=== PATIENT | male | born 1965 | race Two or more races ===

== ENCOUNTER 2024-05-03 16:27 | Inpatient (IN) | payer MEDICARE, MEDICAID ==
[~2024-05-03] VITALS: Ht 160 cm; Wt 62.0 kg
[2024-05-03] MEDS: MORPHINE SULFATE 4 MG/ML SYR/VIAL IV ONE (18:15)
[2024-05-03] MEDS: ONDANSETRON HCL 4 MG/2 ML VIAL IV ONE (18:15)
[2024-05-03] MEDS: SODIUM CHLORIDE 0.9% 1,000 ML IV ONE (18:15)
[2024-05-03 18:46] LABS: Basophils # (auto) 0.1 10 ^3/uL (0-0.2); Basophils % (auto) 0.8 % (0.0-2.0); Eosinophils # (auto) 0.1 10 ^3/uL (0-0.8); Eosinophils % (auto) 1.3 % (0.0-7.0); Hematocrit 35.5 % (41.0-53.0); Hemoglobin 11.7 g/dL (13.5-17.5); Lymphocytes # (auto) 0.8 10 ^3/uL (0.4-5.4); Lymphocytes % (auto) 11.7 % (10.0-50.0); Mean Corpuscular Hemoglobin 31.1 pg (28.0-32.0); Mean Corpuscular Hgb Conc. 32.9 g/dL (32.0-36.0); Mean Corpuscular Volume 94.5 fL (80.0-100.0); Monocytes # (auto) 0.4 10 ^3/uL (0-1.3); Monocytes % (auto) 6.1 % (0.0-12.0); Neutrophils # (auto) 5.8 10 ^3/uL (1.6-8.6); Neutrophils % (auto) 80.1 % (37.0-80.0); Platelet Count (auto) 182 10^3/uL (140-450); Red Blood Cells 3.75 10^6/uL (4.5-5.90); Red Cell Distribution Width 17.8 % (11.8-14.3); White Blood Cell 7.2 10^3/uL (4.4-10.8)
[2024-05-03 19:21] LABS: Albumin 3.4 g/dL (3.2-4.8); Anion Gap 10 (5-15); Calcium 9.3 mg/dL (8.7-10.4); Carbon Dioxide 22 mmol/L (20-31); Chloride 107 mmol/L (98-107); Glucose 103 mg/dL (74-106); Lipase 37 U/L (12-53); Potassium 4.1 mmol/L (3.5-5.1); Sodium 139 mmol/L (136-145)
--- NOTE | 2024-05-03 19:22 | DVH ---
Exam: CT CT AB PEL WO CON-NO ORAL OR IV History: abd pain distention hx colon ca Comparison Study: None TECHNIQUE: Multidetector CT of the abdomen and pelvis was performed from lung bases to pubic symphysi s. Imaging was performed without IV contrast. Axial, coronal, and sagittal multiplanar reformats were obtained from the axial data set by the technologist. RADIATION DOSE: DLP 333.1 mGy.cm; CTDI vol 5.79 mGy. Findings: Limited evaluation given noncontrast technique. Lungs: Multiple left lower lobe pulmonary nodules. Heart: No cardiomegaly or pericardial effusion. Liver: Percutaneous biliary stent. Common bile duct stent. Biliary ductal dilatation with portal veno us gas Gallbladder: Unremarkable. Spleen: Splenomegaly. Pancreas: Unremarkable Adrenals: Unremarkable Kidneys: Unremarkable GI tract: Postsurgical changes of the bowel. : Unremarkable. Vasculature: Unremarkable Lymphadenopathy: Calcified retroperitoneal nodes. Peritoneum: Moderate volume ascites. Musculoskeletal: Mild multilevel degenerative changes of the thoracolumbar spine. Expansile lesions i n the posterolateral aspects of right ribs 10-11. Soft tissues: Unremarkable Impression: 1. Limited evaluation given noncontrast technique. 2. No acute abdominopelvic abnormalities. 3. Moderate volume ascites. 4. Percutaneous biliary and common bile duct stents with biliary ductal dilatation and portal venous gas. 5. Splenomegaly. 6. Multiple left lower lobe pulmonary nodules. Cannot exclude metastatic disease. 7. Expansile lesions in the posterior aspects of right ribs 10-11, may be metastatic.
[2024-05-03 19:35] LABS: BUN/Creatinine Ratio 10.7 (10.0-20.0)
[2024-05-03 19:37] LABS: Alanine Aminotransferase 56 U/L (7-40); Alkaline Phosphatase 510 U/L (46-116); Aspartate Aminotransferase 74 U/L (13-40); Bilirubin, Total 12.4 mg/dL (0.2-1.0); Blood Urea Nitrogen 8 mg/dL (9-23); Total Protein 7.5 g/dL (5.7-8.2)
--- NOTE | 2024-05-03 20:33 | ED.PDOC ---
GI ASSESSMENT HPI Comments 58y M with a history of terminal colon CA presents to the ED for chief complaint of abdominal pain distention. Pt states he has history of terminal colon cancer with mets to the liver and states over the past few, weeks has noticed increased abdominal distention with increased fluid in the abdomen. Pt states he was receiving cancer treatment at [facility], including biliary stent placement on 04/26/2024. He states the biliary stent has been draining appropriately, however he has developed more abdominal fluid and was told by [facility] that he could go to any hospital for therapeutic paracentesis. Pt otherwise has noted nausea but denies shortness of breath, diarrhea, fever, cough, chills, dizzine ss, headache, chest pain. He states he is short of breath at night due to the abdominal distention making it difficult for him to take deep breaths while lying flat. Pt otherwise has noted abdominal distention with noted biliary pain in the R side of abdomen. Pt otherwise has noted stable vitals with noted temp of 98.0F, rr 17, BP 118/71, and 02 sat of 100% on room air. Pt otherwise denies any other symptoms at this time. Chief Complaint: Abdominal Pain Time Seen by MD: 20:30 Reviewed Notes: Medications, Allergies Information Source: Patient Mode of Arrival: Ambulatory Brought in by: self Past Medical History PAST MEDICAL HISTORY: Cancer (Stage IV colon CA) Surgical History (Other): Biliary stent placement, partial colectomy Family History Family History: Reviewed,noncontributory to illness Social History Smoker: Non-Smoker Alcohol: Denies ETOH Use Drugs: Denies Drug Use Lives In: Home Constitutional: denies: chills, diaphoresis, fatigue, fever, malaise, sweats, weakness, others EENTM: denies: blurred vision, double vision, ear bleeding, ear discharge, ear drainage, ear pain, ear ringing, eye pain, eye redness, hearing loss, mouth pain, mouth swelling, nasal discharge, nose bleeding, nose congestion, nose pain, photophobia, tearing, throat pain, throat swelling, voice changes, others Respiratory: denies: cough, hemoptysis, orthopnea, SOB at rest, shortness of breath, SOB with excertion, stridor, wheezing, others Cardiovascular: denies: chest pain, dizzy spells, diaphoresis, Dyspnea on exertion, edema, irregular heart beat, left arm pain, lightheadedness, palpitations, PND, syncope, others Gastrointestinal: reports: abdominal pain, nausea; denies: abdomen distended, blood streaked bowels, constipated, diarrhea, dysphagia, difficulty swallowing, hematemesis, melena, poor appetite, poor fluid intake, rectal bleeding, rectal pain, vomiting, others Genitourinary: denies: burning, dysuria, flank pain, frequency, hematuria, incontinence, penile discharge, penile sore, pain, testicle pain, testicle swelling, urgency, others Neurological: denies: dizziness, fainting, headache, left sided numbness, left sided weakness, numbness, paresthesia, pre-existing deficit, right sided numbness, right sided weakness, seizure, speech problems, tingling, tremors, weakness, others Musculoskeletal: denies: back pain, gout, joint pain, joint swelling, muscle pa in, muscle stiffness, neck pain, others Integumetry: denies: bruises, change in color, change in hair/nails, dryness, laceration, lesions, lumps, rash, wounds, others Allergic/Immunocompromised: denies: Difficulty Healing, Frequent Infections, Hives, Itching, others Hematologic/Lymphatic: denies: anemia, blood clots, easy bleeding, easy bruising, swollen glands, others Endocrine: denies: excessive hunger, excessive sweating, excessive thirst, excessive urination, flushing, intolerance to cold, intolerance to heat, unexplained weight gain, unexplained weight loss, others Psychiatric: denies: anxiety, bipolar disorder, depression, hopeless, panic disorder, schizophrenia, sleepless, suicidal, others All Other Systems: Reviewed and Negative Physical Exam General Appearance: No Apparent Distress HEENT: PERRL/EOMI, Scleral Icterus (L) Neck: Full Range of Motion, Normal Inspection Respiratory: Lungs Clear, No Accessory Muscle Use, No Respiratory Distress, Normal Breath Sounds Cardiovascular: No Edema, No JVD, Regular Rate/Rhythm Breast Exam: Deferred Gastrointestinal: Diffuse, Distended, Tenderness, Other (Tense distended abdomen with mild diffuse tenderness to palpation. Right-sided abdominal biliary drain.) Genitalia: Deferred Pelvic: Deferred Rectal: Deferred Extremities: Normal inspection, Normal range of motion, Non-tender, No pedal edema Neurologic: Alert (Oriented x4), Normal Affect, Normal Mood, Other (Ambulatory. No gross focal deficit.) Cerebellar Function: NOT DONE Reflexes: NOT DONE Skin: Dry, Jaundice, Warm Lymphatic: NOT DONE Was a procedure done? Was a procedure done?: No GI differential Dx Differential Diagnosis: Bowel Obstruction, Constipation, Gastritis/PUD, Gastroenteritis, Ischemic Bowel, Pancreatitis, Electrolyte Imbalance, Bacterial, Viral, Impaction, Stress Ulcer Other Differential Diagnosis Severe ascites, among others X-Ray, Labs, Meds, VS Vital Signs Date Time Temp Pulse Resp B/P (MAP) Pulse Ox O2 Delivery O2 Flow Rate FiO2 05/03/24 17:17 98.0 80 17 118/71 (87) 100 Lab Test 05/03/24 20:00 05/03/24 18:25 Range/Units Urine Color Dark-yellow Yellow Urine Clarity Turbid H Clear Urine pH 5.5 5.0-9.0 Urine Specific [place] 1.019 1.001-1.035 Urine Protein Trace H Negative Urine Ketones Negative Negative Urine Blood Negative Negative /uL Urine Nitrite Negative Negative Urine Bilirubin 2+ Negative Urine Urobilinogen 2 H Negative mg/dL Urine Leukocyte Esterase 1+ Negative /uL Urine RBC 1 0 - 3 /hpf Urine Microscopic WBC 25 H 0-3 /HPF Urine Squamous Epithelial Cells Few <5 /hpf Urine Bacteria Many H None Seen /hpf Urine Mucus Few None Seen Urine Glucose Normal Normal mg/dL White Blood Count 7.2 4.4-10.8 10^3/uL Red Blood Count 3.75 L 4.5-5.90 10^6/uL Hemoglobin 11.7 L 13.5-17.5 g/dL Hematocrit 35.5 L 41.0-53.0 % Mean Corpuscular Volume 94.5 80.0-100.0 fL Mean Corpuscular Hemoglobin 31.1 28.0-32.0 pg Mean Corpuscular Hemoglobin Concent 32.9 32.0-36.0 g/dL Red Cell Distribution Width 17.8 H 11.8-14.3 % Platelet Count 182 140-450 10^3/uL Mean Platelet Volume 6.3 L 6.9-10.8 fL Neutrophils (%) (Auto) 80.1 H 37.0-80.0 % Lymphocytes (%) (Auto) 11.7 10.0-50.0 % Monocytes (%) (Auto) 6.1 0.0-12.0 % Eosinophils (%) (Auto) 1.3 0.0-7.0 % Basophils (%) (Auto) 0.8 0.0-2.0 % Neutrophils # (Auto) 5.8 1.6-8.6 10 ^3/uL Lymphocytes # (Auto) 0.8 0.4-5.4 10 ^3/uL Monocytes # (Auto) 0.4 0-1.3 10 ^3/uL Eosinophils # (Auto) 0.1 0-0.8 10 ^3/uL Basophils # (Auto) 0.1 0-0.2 10 ^3/uL Nucleated Red Blood Cells 0.0 % Sodium Level 139 136-145 mmol/L Potassium Level 4.1 3.5-5.1 mmol/L Chloride Level 107 98-107 mmol/L Carbon Dioxide Level 22 20-31 mmol/L Anion Gap 10 5-15 Blood Urea Nitrogen 8 L 9-23 mg/dL Creatinine 0.75 0.700-1.30 mg/dL Glomerular Filtration Rate Calc 105 >90 mL/min BUN/Creatinine Ratio 10.7 10.0-20.0 Serum Glucose 103 74-106 mg/dL Lactic Acid Level 1.5 0.4-2.0 mmol/L Calcium Level 9.3 8.7-10.4 mg/dL Total Bilirubin 12.4 H 0.2-1.0 mg/dL Aspartate Amino Transferase (AST) 74 H 13-40 U/L Alanine Aminotransferase (ALT) 56 H 7-40 U/L Alkaline Phosphatase 510 H 46-116 U/L Troponin I High Sensitivity < 3 L </=54 ng/L Total Protein 7.5 5.7-8.2 g/dL Albumin 3.4 3.2-4.8 g/dL Lipase 37 12-53 U/L [facility] [id number] [place] [id number] Ph: [phone] DIAGNOSTIC IMAGING Diagnostic Imaging Report : [id number] Signed PATIENT: JOSEPH SOLIZT: [id number] UNIT: [id number] : 1965 LOC: ER ROOM / BED: / AGE / SEX: 58 / M ADM STATUS: REG ER SERVICE 13 ORDERING PHYSICIAN: OCTAVIA GARCIA MD PROCEDURE(s): ABPL - CT AB PEL WO CON-NO ORAL OR IV REASON: abd pain distention hx colon ca ORDER NUMBER(s): [id number], ACCESSION NUMBER(s): [id number] Exam: CT CT AB PEL WO CON-NO ORAL OR IV History: abd pain distention hx colon ca Comparison Study: None TECHNIQUE: Multidetector CT of the abdomen and pelvis was performed from lung bases to pubic symphysis. Imaging was performed without IV contrast. Axial, coronal, and sagittal multiplanar reformats were obtained from the axial data set by the technologist. RADIATION DOSE: DLP 333.1 mGy.cm; CTDI vol 5.79 mGy. Findings: Limited evaluation given noncontrast technique. Lungs: Multiple left lower lobe pulmonary nodules. Heart: No cardiomegaly or pericardial effusion. Liver: Percutaneous biliary stent. Common bile duct stent. Biliary ductal dilatation with portal venous gas Gallbladder: Unremarkable. Spleen: Splenomegaly. Pancreas: Unremarkable Adrenals: Unremarkable Kidneys: Unremarkable GI tract: Postsurgical changes of the bowel. : Unremarkable. Vasculature: Unremarkable Lymphadenopathy: Calcified retroperitoneal nodes. Peritoneum: Moderate volume ascites. Musculoskeletal: Mild multilevel degenerative changes of the thoracolumbar spine. Expansile lesions in the posterolateral aspects of right ribs 10-11. Soft tissues: Unremarkable Impression: 1. Limited evaluation given noncontrast technique. 2. No acute abdominopelvic abnormalities. 3. Moderate volume ascites. 4. Percutaneous biliary and common bile duct stents with biliary ductal dilatation and portal venous gas. 5. Splenomegaly. 6. Multiple left lower lobe pulmonary nodules. Cannot exclude metastatic disease. 7. Expansile lesions in the posterior aspects of right ribs 10-11, may be metastatic. ATED BY: YUE WYLIE DO DICTATED DATE/TIME: 05/03/241919 SIGNED BY: YUE WYLIE DO SIGNED DATE/TIME: 05/03/241919 CC: X-Ray, Labs, Meds, VS Comment 58-year-old male with a history of metastatic colon CA status post biliary drain placement presenting complaining of abdominal pain, distention and difficulty breathing Vitals unremarkable Exam remarkable for a tense distended abdomen with mild diffuse tenderness to palpation Rhythm strip independently interpreted by me: Sinus rhythm, rate 80, no ectopy. CT abdomen and pelvis: Impression: 1. Limited evaluation given noncontrast technique. 2. No acute abdominopelvic abnormalities. 3. Moderate volume ascites. 4. Percutaneous biliary and common bile duct stents with biliary ductal dilatation and portal venous gas. 5. Splenomegaly. 6. Multiple left lower lobe pulmonary nodules. Cannot exclude metastatic disease. 7. Expansile lesions in the posterior aspects of right ribs 10-11, may be metastatic. CBC remarkable for hemoglobin 11.7, hematocrit 35.5, metabolic panel remarkable for total bilirubin 12.4, AST 74, ALT 56, alkaline phos 510, lipase normal, UA abnormal consistent with UTI Patient treated with the following in the ED: Morphine 4 mg IV, Zofran 4 mg IV, Rocephin 1 g IV On re-evaluation, patient states pain has improved. Vitals were stable. Plan is to admit the patient for therapeutic paracentesis and IV antibiotics to treat his UTI. Time of 1ST Reevaluation: 21:00 Reevaluation 1ST: Unchanged Patient Education/Counseling: Diagnosis, Treatment Family Education/Counseling: No Family Present Additional Information -Reviewed patient's previous visit(s): - The following tests were ordered, and results were reviewed by me:tropx 3, cbc,cmp, lipase, ua, blood culture, lactic acid, ct abd pelvic non-con, - Additional information was gathered from interviewing the following independent Historian: patient - I reviewed and agreed with the following test results read by other provider: radiologist - I discussed treatments and results with medical personnel and: patient Comprehensive systems review obtained and negative except for what is stated in the HPI. Departure 1 Departure Time of Disposition: 20:46 Impression: Primary Impression: Ascites Qualified Codes: R18.0 - Malignant ascites Additional Impression: UTI (urinary tract infection) Qualified Codes: N39.0 - Urinary tract infection, site not specified Disposition: ADMITTED INPATIENT Admit to: Med Surg Condition: Fair Critical Care Note Critical Care Time?: No Stability Stability form required: No Heart Score Heart Score: Heart Score Response (Comments) Value History N/A 0 EKG N/A 0 Age N/A 0 Risk Factors N/A 0 Troponin N/A 0 Total 0 I personally scribed for OCTAVIA GARCIA MD ([facility]) on 05/03/24 at 20:33. Electronically submitted by Bebeto Adams ([facility]). OCTAVIA GARCIA MD May 03, 2024 20:33
[2024-05-03 20:34] LABS: Urine Bacteria MANY /hpf (None Seen); Urine Blood Negative /uL (Negative); Urine Clarity Turbid (Clear); Urine Color Dark-Yellow (Yellow); Urine Mucus FEW (None Seen); Urine Protein, UAD TRACE (Negative); Urine Specific Gravity 1.019 (1.001-1.035); Urine Squamous Epithelial Cell FEW /hpf (<5); Urine Urobilinogen 2 mg/dL (Negative); Urine WBC 25 /HPF (0-3); Urine pH 5.5 (5.0-9.0)
[2024-05-03] MEDS: cefTRIAXone 1GM/50ML D5W 50 ML IV ONE (20:45)
--- NOTE | 2024-05-03 22:28 | DVHHPRES ---
History of Present Illness Resident Creating Document: CHIP BOWLES RESIDENT Reason for Visit: ABDOMINAL PAIN AND DISTENSION History of Present Illness 58 year old male Tu[place] speaking only with a history colon cancer with metastasis to the liver presenting to the ED today with a chief complaint of abdominal pains with distension. Patient was diagnosed of Colon cancer in 2016 and had partial colectomy with chemotherapy. However in 2021, he had a recurrence of the colon cancer with metastasis. Patient used to see an oncologist at [facility] and was on chemotherapy. But due to intolerance and side effects such as "shortness of breath and severe shaking" his oncologist decided to discontinue the chemotherapy and placed percutaneous stent and biliary draine 15 days ago ( End of March). He is here because of the abdominal distension with associated pain,mild shortness of breath and early satiety. He denies fever, chest pain, hematemesis, hematochezia, fatigue or pruritis. Chest x-raey shows right basilar effusion and fluid in the right major fissure. CT Abdomen showed moderate volume ascites, splenomegaly and Multiple left lower lobe pulmonary nodules and Expansile lesions in the posterior aspects of right ribs 10-11. PMhx: Colon cancer PSHx: Colectomy 2019, Biliary stent Social Hx: Disable, lives with sister and son Past Medical History See HPI Review of Systems Constitutional: No: Fever, Chills, Sweats, Weakness, Malaise, Other ENT: No: Ear pain, Ear discharge, Nose pain, Nose discharge, Nose congestion, Mouth pain, Mouth swelling, Throat pain, Throat swelling, Other Respiratory: Shortness of breath; No: Cough, Dry, SOB with excertion, Wheezing, Hemoptysis, Pleuritic Pain, Sputum, Wheezing, Other Cardiovascular: No: Chest Pain, Palpitations, Orthopnea, Paroxysmal Noc. Dyspnea, Edema, Lt Headedness, Other Gastrointestinal: Abdominal Pain; No: Nausea, Vomiting, Diarrhea, Constipation, Melena, Hematochezia, Other Genitourinary: No Dysuria, No Frequency, No Incontinence, No Hematuria, No Retention, No Other Musculoskeletal: No: other, neck pain, shoulder pain, arm pain, back pain, hand pain, leg pain, foot pain Skin: No: Rash, Lesions, Jaundice, Bruising, Other Allergies: Coded Allergies: NO KNOWN ALLERGIES (Unverified , 05/03/24) Medications Current Medications Medications Dose Ordered Sig/[place]ee[place]e Route Start Time Stop Time Status Last Admin Dose Admin Ceftriaxone Sodium 50 ml @ 100 mls/hr DAILY@09 IV 05/04/24 09:00 Exam Vital Signs Vital Signs Date Time Temp Pulse Resp B/P (MAP) Pulse Ox O2 Delivery O2 Flow Rate FiO2 05/03/24 17:17 98.0 80 17 118/71 (87) 100 Exam General Appearance: Alert, Oriented X3, Cooperative, Mild acute distress HEENT: Atraumatic, PERRLA, EOMI, Mucous membrane moist/pink Respiratory: Clear to auscultation, Normal air movement Cardiovascular: Regular rate, Normal S1, Normal S2, No murmurs, no chest wall tenderness Abdominal: distention and tenderness,hernia bowel sounds present, no scars noted Extremities: No clubbing, No cyanosis, No edema, Normal pulses, No tenderness/swelling Skin: No rashes, No breakdown, No significant lesion Neuro: Normal gait, Normal speech, Strength at 5/5 X4 ext, Normal tone, Sensation intact, Cranial nerves 3-12 NL, Reflexes 2+ Psych/Mental Status: Mental status NL, Mood NL Labs/Xrays Labs Test 05/03/24 20:00 05/03/24 18:25 Range/Units Urine Color Dark-yellow Yellow Urine Clarity Turbid H Clear Urine pH 5.5 5.0-9.0 Urine Specific [place] 1.019 1.001-1.035 Urine Protein Trace H Negative Urine Ketones Negative Negative Urine Blood Negative Negative /uL Urine Nitrite Negative Negative Urine Bilirubin 2+ Negative Urine Urobilinogen 2 H Negative mg/dL Urine Leukocyte Esterase 1+ Negative /uL Urine RBC 1 0 - 3 /hpf Urine Microscopic WBC 25 H 0-3 /HPF Urine Squamous Epithelial Cells Few <5 /hpf Urine Bacteria Many H None Seen /hpf Urine Mucus Few None Seen Urine Glucose Normal Normal mg/dL White Blood Count 7.2 4.4-10.8 10^3/uL Red Blood Count 3.75 L 4.5-5.90 10^6/uL Hemoglobin 11.7 L 13.5-17.5 g/dL Hematocrit 35.5 L 41.0-53.0 % Mean Corpuscular Volume 94.5 80.0-100.0 fL Mean Corpuscular Hemoglobin 31.1 28.0-32.0 pg Mean Corpuscular Hemoglobin Concent 32.9 32.0-36.0 g/dL Red Cell Distribution Width 17.8 H 11.8-14.3 % Platelet Count 182 140-450 10^3/uL Mean Platelet Volume 6.3 L 6.9-10.8 fL Neutrophils (%) (Auto) 80.1 H 37.0-80.0 % Lymphocytes (%) (Auto) 11.7 10.0-50.0 % Monocytes (%) (Auto) 6.1 0.0-12.0 % Eosinophils (%) (Auto) 1.3 0.0-7.0 % Basophils (%) (Auto) 0.8 0.0-2.0 % Neutrophils # (Auto) 5.8 1.6-8.6 10 ^3/uL Lymphocytes # (Auto) 0.8 0.4-5.4 10 ^3/uL Monocytes # (Auto) 0.4 0-1.3 10 ^3/uL Eosinophils # (Auto) 0.1 0-0.8 10 ^3/uL Basophils # (Auto) 0.1 0-0.2 10 ^3/uL Nucleated Red Blood Cells 0.0 % Sodium Level 139 136-145 mmol/L Potassium Level 4.1 3.5-5.1 mmol/L Chloride Level 107 98-107 mmol/L Carbon Dioxide Level 22 20-31 mmol/L Anion Gap 10 5-15 Blood Urea Nitrogen 8 L 9-23 mg/dL Creatinine 0.75 0.700-1.30 mg/dL Glomerular Filtration Rate Calc 105 >90 mL/min BUN/Creatinine Ratio 10.7 10.0-20.0 Serum Glucose 103 74-106 mg/dL Lactic Acid Level 1.5 0.4-2.0 mmol/L Calcium Level 9.3 8.7-10.4 mg/dL Total Bilirubin 12.4 H 0.2-1.0 mg/dL Aspartate Amino Transferase (AST) 74 H 13-40 U/L Alanine Aminotransferase (ALT) 56 H 7-40 U/L Alkaline Phosphatase 510 H 46-116 U/L Troponin I High Sensitivity < 3 L </=54 ng/L Total Protein 7.5 5.7-8.2 g/dL Lipase 37 12-53 U/L Assessment/Plan Assessment/Plan Assessment Ascites 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 Valdez Plan discussed with: Patient My Orders Orders - CHIP BOWLES Procedure Category Date Status Time Admit ADMIT 05/03/24 Transmitted 21:50 Complete Blood Count LAB 05/04/24 Verified 04:00 Drug Screen LAB 05/03/24 In Process 21:50 PTPTT LAB 05/03/24 In Process 21:50 Thyroid Stimulating LAB 05/03/24 In Process Hormone 21:50 Cytology SRI 05/03/24 Transmitted 21:50 Chest Xray 1 View XY 05/03/24 Taken 21:50 Electrocardigram EKG 05/03/24 Logged 22:50 Ammonia LAB 05/03/24 Logged 21:50 Lactate Dehydrogenase LAB 05/03/24 In Process 21:50 Lactate LAB 05/03/24 Logged Dehydrogenase, Fluid 21:50 Albumin; Body Fluid LAB 05/03/24 Logged 21:50 Albumin LAB 05/03/24 In Process 21:50 Body Fluid Ph LAB 05/03/24 Logged 21:50 Body Fluid Culture W/ SRI 05/03/24 Logged GS 21:50 Body Fluids, Diff. LAB 05/03/24 Logged Cell Count 21:50 Comprehensive LAB 05/04/24 Verified Metabolic Panel 04:00 Paracentesis US 05/04/24 Logged 07:00 Ceftriaxone 1gm/50ml PHA 05/04/24 In Process D5w (Rocephin) 09:00 Date of Service: May 03, 2024 Billing Provider: LYLY VALDEZ MD Common Visit Codes: 35927-CLTKOSM INP/OBS CARE (HIGH) Secondary Visit Codes: 67446-ZOLCIBCI CARE PLAN 30 MINUTES CHIP BOWLES May 03, 2024 22:28 LYLY VALDEZ MD May 04, 2024 16:57
[2024-05-03 22:30] VITALS: PULSE 78; RESP 12; O2SAT 99
--- NOTE | 2024-05-03 22:39 | DVH ---
CHEST RADIOGRAPH Indication: rule out pneumonia Technique: Single frontal view of the chest was obtained Comparison: Lung windows from prior CT examination of the abdomen and pelvis of today's date FINDINGS: 1. There is an effusion and fluid in the right major fissure in the right lung base. Otherwise lungs are clear. Is also a pigtail catheter projecting over the liver IMPRESSION: 1. Right basilar effusion and fluid in the right major fissure.Patient has a Biliary drain projecting over liver..
[2024-05-03 22:43] LABS: INR 1.31 (0.9-1.15); Partial Thromboplastin Time 32.3 SEC (24.5-34.5); Prothrombin Time 13.5 sec (9.3-11.8)
--- NOTE | 2024-05-03 22:44 | DVH ---
INDICATION: FLUID CHECK TECHNIQUE: Multiple real-time sonographic images were obtained of the right upper quadrant. COMPARISON: None FINDINGS: Liver is heterogeneous and there is significant ascites adjacent to the liver and and throughout the abdomen. Spleen is enlarged measuring 14 cm in span. IMPRESSION: 1. Significant ascites.
[2024-05-03 22:51] LABS: Thyroid Stimulating Hormone 4.51 uIU/mL (0.55-4.78)
[2024-05-03 22:58] LABS: Amphetamine Screen, Urine Neg (NEGATIVE); Barbiturate Scree,Urine Neg (NEGATIVE); Benzodiazephine Screen, Urine Neg (NEGATIVE); Cannabinoid Screen, Urine Neg (NEGATIVE); Cocaine Screen, Urine Neg (NEGATIVE); Opiate Scree,Urine Neg (NEGATIVE); Phencyclidine Screen, Urine Neg (NEGATIVE)
[2024-05-03 23:54] VITALS: BP 100/61; PULSE 60; RESP 20; TEMP 98.1; O2SAT 100
[2024-05-04] VITALS (9 sets, daily range): BP systolic 90–104; BP diastolic 54–63; PULSE 60–73; RESP 17–20; TEMP 97.6–98.1; O2SAT 98–100
[2024-05-04 06:16] LABS: Basophils # (auto) 0.1 10 ^3/uL (0-0.2); Basophils % (auto) 1.2 % (0.0-2.0); Eosinophils # (auto) 0.1 10 ^3/uL (0-0.8); Eosinophils % (auto) 1.5 % (0.0-7.0); Hematocrit 28.2 % (41.0-53.0); Hemoglobin 9.8 g/dL (13.5-17.5); Lymphocytes # (auto) 0.7 10 ^3/uL (0.4-5.4); Lymphocytes % (auto) 14.6 % (10.0-50.0); Mean Corpuscular Hemoglobin 31.9 pg (28.0-32.0); Mean Corpuscular Hgb Conc. 34.9 g/dL (32.0-36.0); Mean Corpuscular Volume 91.4 fL (80.0-100.0); Monocytes # (auto) 0.5 10 ^3/uL (0-1.3); Monocytes % (auto) 9.2 % (0.0-12.0); Neutrophils # (auto) 3.7 10 ^3/uL (1.6-8.6); Neutrophils % (auto) 73.5 % (37.0-80.0); Nucleated Red Blood Cells % 0.1 %; Platelet Count (auto) 144 10^3/uL (140-450); Red Blood Cells 3.09 10^6/uL (4.5-5.90); Red Cell Distribution Width 17.2 % (11.8-14.3)
[2024-05-04 06:27] LABS: Alanine Aminotransferase 48 U/L (7-40); Albumin 2.8 g/dL (3.2-4.8); Alkaline Phosphatase 436 U/L (46-116); Anion Gap 8 (5-15); Aspartate Aminotransferase 65 U/L (13-40); Blood Urea Nitrogen 9 mg/dL (9-23); Calcium 8.8 mg/dL (8.7-10.4); Carbon Dioxide 25 mmol/L (20-31); Chloride 107 mmol/L (98-107); Glucose 79 mg/dL (74-106); Potassium 3.8 mmol/L (3.5-5.1); Sodium 140 mmol/L (136-145)
[2024-05-04 06:28] LABS: BUN/Creatinine Ratio 12.7 (10.0-20.0)
[2024-05-04 06:32] LABS: Total Protein 6.2 g/dL (5.7-8.2)
[2024-05-04] MEDS ORDERED: MORPHINE SULFATE INJ 2 MG/ml SYRG IV PRN (08:00)
[2024-05-04] MEDS ORDERED: ONDANSETRON HCL 4 MG/2 ML VIAL IV PRN (08:00)
--- NOTE | 2024-05-04 10:52 | DVH ---
US PARACENTESIS, HISTORY: ASCITES PROCEDURE: Informed consent was obtained. The patient was placed in supine position. A limited locali zation ultrasound of the abdomen was obtained, and the skin site over the largest pocket of fluid was marked and entry site was prepped with chlorhexidine which was allowed to dry and draped in the usua l sterile fashion. Time out was performed. Following administration of 1% lidocaine local anesthetic, a 5 [place] centesis needle catheter was percutaneously inserted into the peritoneal collection until fluid was aspirated. The catheter was advanced into the fluid collection and the needle removed. Abo ut 3000 cc of fluid was aspirated and specimen sent for appropriate cultures/cytology/cultures and cy tology. The catheter was then removed and a sterile dressing applied. No immediate complication was identified. FINDINGS: Limited ultrasound imaging demonstrates mild ascites. Aspirated fluid was clear and serous. IMPRESSION: US-guided paracentesis with 3L removed.
[2024-05-04] MEDS: SPIRONOLACTONE 25 MG TAB PO SCH (11:17)
[2024-05-04] MEDS: cefTRIAXone 1GM/50ML D5W 50 ML IV SCH (11:17)
--- NOTE | 2024-05-04 11:49 | DVHPNRES ---
Progress Note Date Seen: May 04, 2024 Resident Creating Document: NIELS ELLIS RESIDENT Medical Necessity Reason Pt with a Central, PICC or Fol: No Subjective Review of Systems This is a 58 year old male presenting to the ED with a chief complaint of abdominal pains with distension. PMhx: Colon cancer PSHx: Colectomy 2019, Biliary stent Social Hx: Smoker: Non-Smoker. Alcohol: Denies ETOH Use. Drugs: Denies Drug Use. Lives In: Home lives with sister and son Patient was diagnosed of Colon cancer in 2016 and had partial colectomy with chemotherapy. However in 2021, he had a recurrence of the colon cancer with metastasis. Patient used to see an oncologist at [place] and was on chemotherapy. But due to side effects such as "shortness of breath and severe shaking" his oncologist decided to discontinue the chemotherapy and placed percutaneous stent and biliary drain 15 days ago ( End of March). He is here because of the abdominal distension with associated pain,mild shortness of breath and early satiety. He denies fever, chest pain, hematemesis, hematochezia, fatigue or pruritis. Chest x-ray shows right basilar effusion and fluid in the right major fissure. CT Abdomen showed moderate volume ascites, splenomegaly and Multiple left lower lobe pulmonary nodules. On my initial assessment, patient only complain of abdominal distention and mild shortness of breath, vital signs were stable, he was on room air. He denied any chest pain, abdominal pain, nausea, vomiting, dizziness, lightheadedness, fevers. Objective vital signs Vital Sign Date Time Temp Pulse Resp B/P (MAP) Pulse Ox O2 Delivery O2 Flow Rate FiO2 05/04/24 09:00 98.0 65 18 90/57 (68) 99 98.0 05/03/24 23:00 Room Air* 0 21 Total Intake and Output 05/03/24 05/03/24 05/04/24 15:00 23:00 07:00 Intake Total 0 ml Output Total 200 ml Balance -200 ml medications Current Medications Medications Dose Ordered Sig/Peewee Route Start Time Stop Time Status Last Admin Dose Admin Ceftriaxone Sodium 50 ml @ 100 mls/hr DAILY@09 IV 05/04/24 09:00 05/04/24 11:17 100 MLS/HR Ondansetron HCl 4 mg Q4HPRN PRN IV 05/04/24 08:00 Morphine Sulfate 1 mg Q4HP PRN IV 05/04/24 08:00 Spironolactone 25 mg DAILY PO 05/04/24 10:00 05/04/24 11:17 25 MG Midodrine 5 mg TID@0600,1200,1800 PO 05/04/24 12:00 Examination General: Awake, alert, comfortable appearing, in no acute distress. HEENT: Head is normocephalic and atraumatic. Pupils are equal, round, and reactive to light. Extraocular muscles are intact. No nasal discharge. No facial trauma. Intraoral exam shows moist mucous membranes with no tonsillar enlargement or exudate. Neck: Supple with no cervical lymphadenopathy No meningismus. No goiter. Heart: Regular rate without murmur, rub, or gallop. Lungs: Equal breath sounds bilaterally with no wheezing, rales, or rhonchi. There is no chest wall tenderness or instability. Abdomen: No external sign of injury. Bowel sounds are present. Distended, mildly diffuse tender to palpation, biliary drain on right side Extremities: Strong peripheral pulses. There is no clubbing, no cyanosis, and no edema. Skin: No rash. Neurologic: Cranial nerves II-XII intact without motor, sensory, or cerebellar deficit, no asterixis. laboratory and microbiology Laboratory Tests 05/04/24 05:28 Test 05/04/24 05:28 Range/Units Serum Glucose 79 74-106 mg/dL Microbiology Date/Time Source Procedure Growth Status 05/03/24 20:00 Voided Urine Urine Culture - Preliminary Resulted Labs and/or images reviewed: Labs reviewed by me, Image(s) reviewed by me Problem List/Assessment/Plan Problem List/Assessment/Plan Ascites secondary to metastatic colorectal cancer to the liver Metastatic colon cancer diagnosed in 2017 Metastasis to the liver, lung, and ribs UTI Mild protein malnutrition Normocytic anemia Secondary coagulopathy Transaminitis, mild Splenomegaly Multiple left lower lobe pulmonary nodules Plan Ceftriaxone 1 g IV q.d. Pending urine culture, blood culture, ascitic fluid culture Liver US Paracentesis was performed, remove 3 L Hepatorenal syndrome prophylaxis: Albumin IV 25%/12.5 g in 50 mL Spironolactone 25 mg p.o. q.d. Midodrine 5 mg p.o. t.i.d. Hepatic diet Goal of care discussed for more than 30 minute, code status: full code Case and plan discussed with Dr. Valdez Plan discussed with: Patient, Other (RN) My Orders My Orders Orders - NIELS ELLIS RESIDENT Procedure Category Date Status Time Ondansetron Hcl PHA 05/04/24 In Process (Zofran) 08:00 Morphine Sulfate PHA 05/04/24 In Process Injection 08:00 Spironolactone PHA 05/04/24 In Process (Aldactone) 10:00 Midodrine Tablet PHA 05/04/24 In Process (Proamatine Tablet) 12:00 Hepatic Diet DIET 05/04/24 Transmitted (50gmpro,2gmna) Lunch Albumin 25% (Albutein) PHA 05/04/24 In Process 11:15 Date of Service: May 04, 2024 Billing Provider: LYLY VALDEZ MD Common Visit Codes: [id number] INP/OBS CARE(HIGH) NIELS ELLIS RESIDENT May 04, 2024 11:49 LYLY VALDEZ MD May 04, 2024 17:15
[2024-05-04] MEDS ORDERED: MIDODRINE HCL 10 MG TAB PO SCH (12:00)
[2024-05-04 13:46] LABS: Body Fluid Polymorphonuclear 6 % (0-25)
[2024-05-04 13:58] LABS: Body Fluid Red Blood Cells 90 CUMM (0-2000); Body Fluid White Blood Cells 70 CUMM (0-200)
[2024-05-04] MEDS: ALBUMIN 25% 50 ML IV ONE (15:58)
[2024-05-04] MEDS: MIDODRINE HCL 10 MG TAB PO SCH (16:06)
--- NOTE | 2024-05-04 21:28 | DVH ---
EXAM: US LIVER CLINICAL HISTORY: transaminitis TECHNIQUE: Grayscale and limited color flow doppler ultrasound of the right upper quadrant is perfor med. COMPARISON: US ABDOMEN LIMITED on DOS: 05/03/24 Findings: Liver measures 14.4 cm in length with heterogeneousechotexture and contour. No evidence of focal hepa tic lesions. Intrahepatic ductal dilatation. Common bile ductnot visualized. Normal hepatopedal flow noted within the portal vein. No perihepatic free fluid is noted. Bilateral pleural effusions. Gallbladder appears contracted due to biliary drain. Negative sonographic Yeh's sign. Pancreas only partially visualized due to overlying bowel gas but is otherwise unremarkable. Right kidney measures 8.2 cm with normal contours, echotexture and cortical thickness. No evidence of hydronephrosis, calculi, cystic or solid renal lesions. Partially visualized inferior vena cava unremarkable. Impression: 1. No evidence of acute right upper quadrant abnormalities. 2. Coarsened hepatic echotexture, nonspecific. 3. Intrahepatic ductal dilatation. 4. Bilateral pleural effusions.
[2024-05-05] VITALS: BP 97/51; PULSE 63; RESP 17; TEMP 98.3; O2SAT 96
[2024-05-05 05:00] VITALS: BP 94/49; PULSE 68; RESP 17; TEMP 98.8; O2SAT 96
[2024-05-05 08:00] VITALS: BP 92/53; PULSE 66; RESP 17; TEMP 97.9; O2SAT 98
[2024-05-05 08:11] LABS: Basophils # (auto) 0.1 10 ^3/uL (0-0.2); Basophils % (auto) 0.9 % (0.0-2.0); Eosinophils # (auto) 0.1 10 ^3/uL (0-0.8); Eosinophils % (auto) 2.1 % (0.0-7.0); Hematocrit 27.7 % (41.0-53.0); Hemoglobin 9.7 g/dL (13.5-17.5); Lymphocytes # (auto) 0.7 10 ^3/uL (0.4-5.4); Lymphocytes % (auto) 12.2 % (10.0-50.0); Mean Corpuscular Hemoglobin 31.8 pg (28.0-32.0); Mean Corpuscular Hgb Conc. 35.1 g/dL (32.0-36.0); Mean Corpuscular Volume 90.8 fL (80.0-100.0); Monocytes # (auto) 0.5 10 ^3/uL (0-1.3); Monocytes % (auto) 8.6 % (0.0-12.0); Neutrophils # (auto) 4.7 10 ^3/uL (1.6-8.6); Neutrophils % (auto) 76.2 % (37.0-80.0); Nucleated Red Blood Cells % 0.1 %; Platelet Count (auto) 161 10^3/uL (140-450); Red Blood Cells 3.06 10^6/uL (4.5-5.90); Red Cell Distribution Width 17.4 % (11.8-14.3); White Blood Cell 6.1 10^3/uL (4.4-10.8)
[2024-05-05 08:36] LABS: Anion Gap 9 (5-15); BUN/Creatinine Ratio 11.5 (10.0-20.0); Blood Urea Nitrogen 10 mg/dL (9-23); Carbon Dioxide 23 mmol/L (20-31); Glucose 83 mg/dL (74-106); Potassium 3.6 mmol/L (3.5-5.1); Sodium 141 mmol/L (136-145); Total Protein 5.9 g/dL (5.7-8.2)
[2024-05-05 08:40] LABS: Alanine Aminotransferase 47 U/L (7-40); Albumin 2.7 g/dL (3.2-4.8); Alkaline Phosphatase 436 U/L (46-116); Aspartate Aminotransferase 62 U/L (13-40); Bilirubin, Total 9.5 mg/dL (0.2-1.0); Calcium 8.3 mg/dL (8.7-10.4); Chloride 109 mmol/L (98-107)
[2024-05-05] MEDS ORDERED: SPIR25TA PO (09:00)
[2024-05-05] MEDS ORDERED: TAMS-35 PO (09:00)
[2024-05-05] MEDS ORDERED: FURO20TA4 PO (09:00)
[2024-05-05] MEDS ORDERED: MID10T PO (09:00)
[2024-05-05] MEDS: FUROSEMIDE 20 MG TAB PO SCH (10:00)
[2024-05-05] MEDS ORDERED: CEFP200T15 PO (10:28)
--- NOTE | 2024-05-05 10:28 | DVHDSRES ---
Discharge Summary Date of Admission Resident Creating Document: NIELS ELLIS RESIDENT May 03, 2024 at 21:50 Date of Discharge: May 05, 2024 Admitting Diagnosis Ascites Labs/Diagnostic Data: Laboratory Results Test 05/05/24 05:43 05/04/24 11:00 05/04/24 06:20 05/04/24 05:28 White Blood Count 6.1 10^3/uL (4.4-10.8) Red Blood Count 3.06 10^6/uL (4.5-5.90) Hemoglobin 9.7 g/dL (13.5-17.5) Hematocrit 27.7 % (41.0-53.0) Mean Corpuscular Volume 90.8 fL (80.0-100.0) Mean Corpuscular Hemoglobin 31.8 pg (28.0-32.0) Mean Corpuscular Hemoglobin Concent 35.1 g/dL (32.0-36.0) Red Cell Distribution Width 17.4 % (11.8-14.3) Platelet Count 161 10^3/uL (140-450) Mean Platelet Volume 6.3 fL (6.9-10.8) Neutrophils (%) (Auto) 76.2 % (37.0-80.0) Lymphocytes (%) (Auto) 12.2 % (10.0-50.0) Monocytes (%) (Auto) 8.6 % (0.0-12.0) Eosinophils (%) (Auto) 2.1 % (0.0-7.0) Basophils (%) (Auto) 0.9 % (0.0-2.0) Neutrophils # (Auto) 4.7 10 ^3/uL (1.6-8.6) Lymphocytes # (Auto) 0.7 10 ^3/uL (0.4-5.4) Monocytes # (Auto) 0.5 10 ^3/uL (0-1.3) Eosinophils # (Auto) 0.1 10 ^3/uL (0-0.8) Basophils # (Auto) 0.1 10 ^3/uL (0-0.2) Nucleated Red Blood Cells 0.1 % Sodium Level 141 mmol/L (136-145) Potassium Level 3.6 mmol/L (3.5-5.1) Chloride Level 109 mmol/L (98-107) Carbon Dioxide Level 23 mmol/L (20-31) Anion Gap 9 (5-15) Blood Urea Nitrogen 10 mg/dL (9-23) Creatinine 0.87 mg/dL (0.700-1.30) Glomerular Filtration Rate Calc 101 mL/min (>90) BUN/Creatinine Ratio 11.5 (10.0-20.0) Serum Glucose 83 mg/dL (74-106) Calcium Level 8.3 mg/dL (8.7-10.4) Total Bilirubin 9.5 mg/dL (0.2-1.0) Aspartate Amino Transferase (AST) 62 U/L (13-40) Alanine Aminotransferase (ALT) 47 U/L (7-40) Alkaline Phosphatase 436 U/L (46-116) Total Protein 5.9 g/dL (5.7-8.2) Albumin 2.7 g/dL (3.2-4.8) Body Fluid Source Ascities fluid Body Fluid pH 7.0 Body Fluid WBC (Manual) 70 CUMM (0-200) Body Fluid RBC (Manual) 90 CUMM (0-2000) Body Fluid Mononuclear Cells 94 % Body Fluid Polymorphonuclear Cells 6 % (0-25) Troponin I High Sensitivity < 3 ng/L (</=54) Ammonia < 10 umol/L (11-32) Test 05/03/24 20:00 05/03/24 18:25 Urine Color Dark-yellow (Yellow) Urine Clarity Turbid (Clear) Urine pH 5.5 (5.0-9.0) Urine Specific [place] 1.019 (1.001-1.035) Urine Protein Trace (Negative) Urine Ketones Negative (Negative) Urine Blood Negative /uL (Negative) Urine Nitrite Negative (Negative) Urine Bilirubin 2+ (Negative) Urine Urobilinogen 2 mg/dL (Negative) Urine Leukocyte Esterase 1+ /uL (Negative) Urine RBC 1 /hpf (0 - 3) Urine Microscopic WBC 25 /HPF (0-3) Urine Squamous Epithelial Cells Few /hpf (<5) Urine Bacteria Many /hpf (None Seen) Urine Mucus Few (None Seen) Urine Glucose Normal mg/dL (Normal) Urine Opiates Screen Neg (NEGATIVE) Urine Fentanyl Screen Neg (NEGATIVE) Urine Barbiturates Screen Neg (NEGATIVE) Urine Phencyclidine Screen Neg (NEGATIVE) Urine Amphetamines Screen Neg (NEGATIVE) Urine Benzodiazepines Screen Neg (NEGATIVE) Urine Cocaine Screen Neg (NEGATIVE) Urine Cannabinoids Screen Neg (NEGATIVE) Prothrombin Time 13.5 sec (9.3-11.8) Prothrombin Time INR 1.31 (0.9-1.15) Activated Partial Thromboplast Time 32.3 SEC (24.5-34.5) Lactic Acid Level 1.5 mmol/L (0.4-2.0) Lactate Dehydrogenase 291 U/L (120-246) Lipase 37 U/L (12-53) Thyroid Stimulating Hormone (TSH) 4.51 uIU/mL (0.55-4.78) Other Laboratory Tests 05/05/24 05:43 Brief Hx & Hospital Course: This is a 58 year old male presenting to the ED with a chief complaint of abdominal pains with distension. PMhx: Colon cancer PSHx: Colectomy 2019, Biliary stent Social Hx: Smoker: Non-Smoker. Alcohol: Denies ETOH Use. Drugs: Denies Drug Use. Lives In: Home lives with sister and son Patient was diagnosed of Colon cancer in 2016 and had partial colectomy with chemotherapy. However in 2021, he had a recurrence of the colon cancer with metastasis. Patient used to see an oncologist at [place] and was on chemotherapy. But due to side effects such as "shortness of breath and severe shaking" his oncologist decided to discontinue the chemotherapy and placed percutaneous stent and biliary drain 15 days ago ( End of March). He is here because of the abdominal distension with associated pain,mild shortness of breath and early satiety. He denies fever, chest pain, hematemesis, hematochezia, fatigue or pruritis. Chest x-ray shows right basilar effusion and fluid in the right major fissure. CT Abdomen showed moderate volume ascites, splenomegaly and Multiple left lower lobe pulmonary nodules. On my initial assessment, patient only complain of abdominal distention and mild shortness of breath, vital signs were stable, he was on room air. He denied any chest pain, abdominal pain, nausea, vomiting, dizziness, lightheadedness, fevers. Patient was started on taking so ceftriaxone for UTI. Patient has a paracentesis performed, they removed 3 L, patient was then given IV albumin. He was started on hepatorenal syndrome prophylaxis with midodrine, Aldactone. We also started Lasix. Patient states much better after this procedure. Patient currently denies any significant shortness of breath, abdominal pain, chest pain, dizziness, lightheadedness, nausea, vomiting. He is currently ambulatory, tolerating diet. Physical examination as below: General: Awake, alert, comfortable appearing, in no acute distress. HEENT: Head is normocephalic and atraumatic. Pupils are equal, round, and reactive to light. Extraocular muscles are intact. No nasal discharge. No facial trauma. Intraoral exam shows moist mucous membranes with no tonsillar enlargement or exudate. Neck: Supple with no cervical lymphadenopathy No meningismus. No goiter. Heart: Regular rate without murmur, rub, or gallop. Lungs: Equal breath sounds bilaterally with no wheezing, rales, or rhonchi. There is no chest wall tenderness or instability. Abdomen: No external sign of injury. Bowel sounds are present. Distended, mildly diffuse tender to palpation, biliary drain on right side Extremities: Strong peripheral pulses. There is no clubbing, no cyanosis, and no edema. Skin: No rash. Neurologic: Cranial nerves II-XII intact without motor, sensory, or cerebellar deficit, no asterixis. Patient will be discharged home on continue home medications as prescribed. He will continue taking Aldactone, midodrine, Lasix. He will continue taking cefpodoxime. Patient was encouraged to follow up in the distress clinic with Dr. Low, we will try arranging for hospice accommodations as the patient currently refused. Patient verbalized understanding and agree with DC plan, we spent over 30 minute explaining the plan. Case and plan discussed with Dr. Valdez Operations or Procedures [place] [id number] Ph: [phone] DIAGNOSTIC IMAGING Diagnostic Imaging Report : [id number] Signed PATIENT: NIK SOLIZACCT: [id number] UNIT: [id number] : 1965 LOC: OVERFLOW ROOM / BED: [facility] / A AGE / SEX: 58 / M ADM STATUS: ADM IN SERVICE 0000 ORDERING PHYSICIAN: OCTAVIA GARCIA MD PROCEDURE(s): ABDL - ABDOMEN LIMITED REASON: FLUID CHECK ORDER NUMBER(s): [id number], ACCESSION NUMBER(s): [id number] INDICATION: FLUID CHECK TECHNIQUE: Multiple real-time sonographic images were obtained of the right upper quadrant. COMPARISON: None FINDINGS: Liver is heterogeneous and there is significant ascites adjacent to the liver and and throughout the abdomen. Spleen is enlarged measuring 14 cm in span. IMPRESSION: 1. Significant ascites. ATED BY: GIORGIO CAMACHO MD DICTATED DATE/TIME: 05/03/242240 SIGNED BY: GIORGIO CAMACHO MD SIGNED DATE/TIME: 05/03/242240 CC: [place] [address] Ph: [phone] DIAGNOSTIC IMAGING Diagnostic Imaging Report : [id number] Signed PATIENT: NIK SOLIZACCT: [id number] UNIT: [id number] : 1965 LOC: ER ROOM / BED: / AGE / SEX: 58 / M ADM STATUS: REG ER SERVICE 13 ORDERING PHYSICIAN: OCTAVIA GARCIA MD PROCEDURE(s): ABPL - CT AB PEL WO CON-NO ORAL OR IV REASON: abd pain distention hx colon ca ORDER NUMBER(s): [id number], ACCESSION NUMBER(s): [id number] Exam: CT CT AB PEL WO CON-NO ORAL OR IV History: abd pain distention hx colon ca Comparison Study: None TECHNIQUE: Multidetector CT of the abdomen and pelvis was performed from lung bases to pubic symphysis. Imaging was performed without IV contrast. Axial, coronal, and sagittal multiplanar reformats were obtained from the axial data set by the technologist. RADIATION DOSE: DLP 333.1 mGy.cm; CTDI vol 5.79 mGy. Findings: Limited evaluation given noncontrast technique. Lungs: Multiple left lower lobe pulmonary nodules. Heart: No cardiomegaly or pericardial effusion. Liver: Percutaneous biliary stent. Common bile duct stent. Biliary ductal dilatation with portal venous gas Gallbladder: Unremarkable. Spleen: Splenomegaly. Pancreas: Unremarkable Adrenals: Unremarkable Kidneys: Unremarkable GI tract: Postsurgical changes of the bowel. : Unremarkable. Vasculature: Unremarkable Lymphadenopathy: Calcified retroperitoneal nodes. Peritoneum: Moderate volume ascites. Musculoskeletal: Mild multilevel degenerative changes of the thoracolumbar spine. Expansile lesions in the posterolateral aspects of right ribs 10-11. Soft tissues: Unremarkable Impression: 1. Limited evaluation given noncontrast technique. 2. No acute abdominopelvic abnormalities. 3. Moderate volume ascites. 4. Percutaneous biliary and common bile duct stents with biliary ductal dilatation and portal venous gas. 5. Splenomegaly. 6. Multiple left lower lobe pulmonary nodules. Cannot exclude metastatic disease. 7. Expansile lesions in the posterior aspects of right ribs 10-11, may be metastatic. ATED BY: YUE WYLIE DO DICTATED DATE/TIME: 05/03/241919 SIGNED BY: YUE WYLIE DO SIGNED DATE/TIME: 05/03/241919 CC: [place] [address] Ph: [phone] DIAGNOSTIC IMAGING Diagnostic Imaging Report : [id number] Signed PATIENT: NIK SOLIZACCT: [id number] UNIT: [id number] : 1965 [facility]GE / SEX: 58 / M ADM STATUS: ADM IN SERVICE 49 ORDERING PHYSICIAN: CHIP BOWLES RESIDENT PROCEDURE(s): CXR1 - CHEST XRAY 1 VIEW REASON: rule out pneumonia ORDER NUMBER(s): [id number], ACCESSION NUMBER(s): [id number] CHEST RADIOGRAPH Indication: rule out pneumonia Technique: Single frontal view of the chest was obtained Comparison: Lung windows from prior CT examination of the abdomen and pelvis of today's date FINDINGS: 1. There is an effusion and fluid in the right major fissure in the right lung base. Otherwise lungs are clear. Is also a pigtail catheter projecting over the liver IMPRESSION: 1. Right basilar effusion and fluid in the right major fissure.Patient has a Biliary drain projecting over liver.. ATED BY: GIORGIO CAMACHO MD DICTATED DATE/TIME: 05/03/242236 SIGNED BY: GIORGIO CAMACHO MD SIGNED DATE/TIME: 05/03/242236 CC: [address] [id number] Ph: [phone] DIAGNOSTIC IMAGING Diagnostic Imaging Report : [id number] Signed PATIENT: JOSEPH SOLIZT: [id number] UNIT: [id number] : 1965 LOC: CENTRAL ROOM / BED: [facility] AGE / SEX: 58 / M ADM STATUS: ADM IN SERVICE 0700 ORDERING PHYSICIAN: CHIP BOWLES RESIDENT PROCEDURE(s): PARAC - PARACENTESIS REASON: ASCITES ORDER NUMBER(s): [id number], ACCESSION NUMBER(s): [id number] US PARACENTESIS, HISTORY: ASCITES PROCEDURE: Informed consent was obtained. The patient was placed in supine position. A limited localization ultrasound of the abdomen was obtained, and the skin site over the largest pocket of fluid was marked and entry site was prepped with chlorhexidine which was allowed to dry and draped in the usual sterile fashion. Time out was performed. Following administration of 1% lidocaine local anesthetic, a 5 [place] centesis needle catheter was percutaneously inserted into the peritoneal collection until fluid was aspirated. The catheter was advanced into the fluid collection and the needle removed. About 3000 cc of fluid was aspirated and specimen sent for appropriate cultures/cytology/cultures and cytology. The catheter was then removed and a sterile dressing applied. No immediate complication was identified. FINDINGS: Limited ultrasound imaging demonstrates mild ascites. Aspirated fluid was clear and serous. IMPRESSION: US-guided paracentesis with 3L removed. ATED BY: TANNER VALLES MD DICTATED DATE/TIME: 05/04/24 104 SIGNED BY: TANNER VALLES MD SIGNED DATE/TIME: 05/04/24 104 CC: [address] [id number] Ph: [phone] DIAGNOSTIC IMAGING Diagnostic Imaging Report : [id number] Signed PATIENT: JOSEPH SOLIZT: [id number] UNIT: [id number] : 1965 LOC: CENTRAL ROOM / BED: [facility] / B AGE / SEX: 58 / M ADM STATUS: ADM IN SERVICE 1241 ORDERING PHYSICIAN: NIELS ELLIS RESIDENT PROCEDURE(s): LIVUS - LIVER REASON: transaminitis ORDER NUMBER(s): [id number], ACCESSION NUMBER(s): [id number] EXAM: US LIVER CLINICAL HISTORY: transaminitis TECHNIQUE: Grayscale and limited color flow doppler ultrasound of the right upper quadrant is performed. COMPARISON: US ABDOMEN LIMITED on DOS: 05/03/24 Findings: Liver measures 14.4 cm in length with heterogeneousechotexture and contour. No evidence of focal hepatic lesions. Intrahepatic ductal dilatation. Common bile ductnot visualized. Normal hepatopedal flow noted within the portal vein. No perihepatic free fluid is noted. Bilateral pleural effusions. Gallbladder appears contracted due to biliary drain. Negative sonographic Yeh's sign. Pancreas only partially visualized due to overlying bowel gas but is otherwise unremarkable. Right kidney measures 8.2 cm with normal contours, echotexture and cortical thickness. No evidence of hydronephrosis, calculi, cystic or solid renal lesions. Partially visualized inferior vena cava unremarkable. Impression: 1. No evidence of acute right upper quadrant abnormalities. 2. Coarsened hepatic echotexture, nonspecific. 3. Intrahepatic ductal dilatation. 4. Bilateral pleural effusions. ATED BY: YUE WYLIE DO DICTATED DATE/TIME: 05/04/242125 SIGNED BY: YUE WYLIE DO SIGNED DATE/TIME: 05/04/242125 CC: Condition at Discharge: Guarded Final Diagnosis/Problems List Ascites secondary to metastatic colorectal cancer to the liver Metastatic colon cancer diagnosed in 2017 Metastasis to the liver, lung, and ribs UTI, klebsiella pneumoniae Mild protein malnutrition Normocytic anemia Secondary coagulopathy Transaminitis, mild Splenomegaly Multiple left lower lobe pulmonary nodules Discharge Disposition: Home Discharge Instruct/Medications Diet: See Comment Diet comment: hepatic diet Activity: No Restrictions, As Tolerated Follow Up/Referral: fu with pcp in 1-2 weeks Medications: continue midodrine, aldactone and lasix Discharge Statement: "Patient was advised to return to the ER or call 911 if any headaches, dizziness, shortness of breath, chest pain, abdominal pain, bleeding, fevers, or worsening of medical condition. Patient was counseled about treatment plan, medications, possible side effects, patientverbalized understanding. All questions were answered to the best of my ability. This discharge took greater then 30 minutes in planning, reviewing documentation, counseling the patient, and discussing with other team members." ASSESSMENT ASSESSMENT Assessment ascitis Date of Service: May 05, 2024 Billing Provider: LYLY VALDEZ MD Common Visit Codes: [id number] DISCH DAY >30min NIELS ELLIS RESIDENT May 05, 2024 10:28 LYLY VALDEZ MD May 05, 2024 16:53
[2024-05-05 12:59] VITALS: BP 93/58; PULSE 60; RESP 17; TEMP 97.5; O2SAT 100
== END 2024-05-05 13:40 | disposition home or self-care (01) | DRG 436 ==
LOC: ER 16:27 → OVERFLOW 21:50 → CENTRAL 23:53
PROVIDERS: ATTEND Emergency Medicine
PROC: 0W9G3ZZ Drainage of Peritoneal Cavity, Percutaneous Approach (ICD-10-PCS; principal; 2024-05-04)
DX: C78.7 Secondary malignant neoplasm of liver and intrahepatic bile duct (principal); C18.9 Malignant neoplasm of colon, unspecified; C79.51 Secondary malignant neoplasm of bone; N39.0 Urinary tract infection, site not specified; R18.0 Malignant ascites; D68.9 Coagulation defect, unspecified; E44.1 Mild protein-calorie malnutrition; C78.00 Secondary malignant neoplasm of unspecified lung; D64.9 Anemia, unspecified; B96.1 Klebsiella pneumoniae [K. pneumoniae] as the cause of diseases classified elsewhere; Z90.49 Acquired absence of other specified parts of digestive tract; Z85.038 Personal history of other malignant neoplasm of large intestine; Z79.899 Other long term (current) drug therapy; Z68.22 Body mass index [BMI] 22.0-22.9, adult
CPT/HCPCS: 36415; 49083; 71045; 74176; 76705; 76942; 80053; 80307; 81001; 82040; 82140; 83605; 83615; 83690; 83986; 84443; 84484; 85025; 85610; 85730; 87040; 87086; 87088; 87186; 87205; 89051; G0378